=== PATIENT | male | born 1990 | race American Indian/Alaskan Native ===

== ENCOUNTER 2024-03-10 10:30 | Emergency (ER) | payer OTHER ==
[~2024-03-10] VITALS: Ht 182.9 cm; Wt 95.0 kg
[~2024-03-10 10:30] MED LIST: Mobic15 MG PO
[2024-03-10 10:52] VITALS: BP 125/90
[2024-03-10] MEDS ORDERED: ATOM10 (10:57)
[2024-03-10] MEDS ORDERED: ELIQUIS5 M2 PO (10:58)
[2024-03-10] MEDS ORDERED: METH40 PO (10:58)
== END 2024-03-10 12:13 | disposition home or self-care (01) ==
LOC: ER 10:30
DX: I82.811 Embolism and thrombosis of superficial veins of right lower extremity (principal); F17.210 Nicotine dependence, cigarettes, uncomplicated; Z79.899 Other long term (current) drug therapy; Z88.2 Allergy status to sulfonamides
CPT/HCPCS: 93971; 99283-25

== ENCOUNTER 2024-08-14 12:55 | Emergency (ER) | payer OTHER ==
[~2024-08-14] VITALS: Ht 182.9 cm; Wt 90.7 kg
[~2024-08-14 12:55] MED LIST changes: +ATOM10; +ELIQUIS5 M2 PO; +METH40 PO
[2024-08-14 13:02] VITALS: BP 140/68
[2024-08-14] MEDS ORDERED: CEPH500 PO (13:17)
== END 2024-08-14 13:17 | disposition home or self-care (01) ==
LOC: ER 12:55
DX: L02.412 Cutaneous abscess of left axilla (principal); Z88.2 Allergy status to sulfonamides; Z59.89 Other problems related to housing and economic circumstances
CPT/HCPCS: 99282

== ENCOUNTER 2024-09-17 16:47 | Emergency (ER) | payer OTHER ==
[~2024-09-17] VITALS: Ht 182.9 cm; Wt 95.2 kg
[~2024-09-17 16:47] MED LIST changes: +CEPH500 PO
[2024-09-17 17:09] VITALS: BP 130/81
[2024-09-17] MEDS ORDERED: Fluorescein Sod 1MG Opth Strips RIGHTEYE ONE (17:15)
[2024-09-17] MEDS ORDERED: Tetracaine HCl/Pf 0.5% Opth Soln 4 ml RIGHTEYE ONE (17:15)
[2024-09-17] MEDS ORDERED: Erythromycin 0.5% Opth Oint 1 gm RIGHTEYE ONE (17:35)
[2024-09-19 15:06] LABS: HEPATITIS B SURFACE ANTIBODY >1000.00 IU/L
[2024-09-19 16:20] LABS: HIV 1,2 COMBO ANTIGEN/ANTIBODY Negative (Negative)
[2024-09-20 17:28] LABS: HCV QNT BY NAAT (IU/ML) Not Detected; HCV QNT BY NAAT (LOG IU/ML) Not Detected; HCV QNT BY NAAT INTERP Not Detected (Not Detected)
== END 2024-09-17 17:43 | disposition home or self-care (01) ==
LOC: ER 16:47
PROVIDERS: Physician Assistant
DX: S05.01XA Injury of conjunctiva and corneal abrasion without foreign body, right eye, initial encounter (principal); S61.431A Puncture wound without foreign body of right hand, initial encounter; F17.210 Nicotine dependence, cigarettes, uncomplicated; Z88.2 Allergy status to sulfonamides; Z79.01 Long term (current) use of anticoagulants; Z79.899 Other long term (current) drug therapy; X58.XXXA Exposure to other specified factors, initial encounter; W27.3XXA Contact with needle (sewing), initial encounter; Y93.H9 Activity, other involving exterior property and land maintenance, building and construction
CPT/HCPCS: 36415; 87389; 87522; 99283; A9270